=== PATIENT | female | born 1960 | race Caucasian/White ===

== ENCOUNTER 2017-03-29 16:09 | Emergency (ER) | payer OTHER ==
[~2017-03-29] VITALS: Ht 157.5 cm; Wt 53.0 kg
[~2017-03-29 16:09] MED LIST: ACET1TAB37 PO; AMOX1TAB10 PO; BACTDS PO; BENZ100C70 PO; FLUT16SP17 NASAL; NAPR-260 PO; PROM5SYR2 PO
[2017-03-29 16:13] VITALS: Ht 157.5 cm; Wt 53.0 kg
[2017-03-29] MEDS ORDERED: predniSONE 20 MG TAB PO STA (16:47)
[2017-03-29] MEDS ORDERED: DIPHENHYDRAMINE 50 MG CAP PO STA (16:47)
[2017-03-29] MEDS ORDERED: PRED10TA PO (16:52)
[2017-03-29] MEDS ORDERED: DIPH25CA6 PO (16:52)
--- NOTE | 2017-03-29 17:00 | ERD ---
ER Documentation Chief Complaint Date/Time DATE: 03/29/17 TIME: 16:57 Chief Complaint generalized rash with itching HPI This is a 56-year-old female with a history of diabetes type 2 on insulin, glaucoma presenting to the emergency department complaining of generalized itchiness and rash since Monday. Patient states that there is no pain associated. She rates as moderate in severity. She denies any shortness of breath or chest pain. Patient states that she has not tried any medications for this. Patient states that she had a glaucoma surgery 2 weeks prior to being seen in her vision is still decreased and she is continuing to use eyedrops. ROS All systems reviewed and are negative except as per history of present illness. Medications Home Meds Active Scripts Diphenhydramine Hcl* (Diphenhydramine Hcl*) 25 Mg Capsule, 25 MG PO Q6 Y for ITCHING, #30 CAP Prov:DOUGLAS BURCIAGA PA-C 03/29/17 Prednisone* (Prednisone*) 10 Mg Tab, 30 MG PO DAILY for 3 Days, TAB Prov:DOUGLAS BURCIAGA PA-C 03/29/17 Amoxicillin/Potassium Clav (Amox-Clav 875-125 mg Tablet) 875-125 mg Tab, 1 TAB PO BID for 7 Days, #14 TAB Prov:BINA MUNROE PA-C 09/14/16 Benzonatate* (Tessalon Perle*) 100 Mg Capsule, 100 MG PO Q8H Y for COUGH for 14 Days, CAP Prov:LIZZ WALSH PA-C 09/13/16 Acetaminophen/Chlorpheniramine (CORICIDIN HBP COLD & FLU TAB) 1 Each Tablet, 1 EACH PO BID for 7 Days, TAB Prov:LIZZ WALSH PA-C 09/13/16 Fluticasone Propionate* (Fluticasone Propionate* Nasal) 50 Mcg/Bladen - 16 Gm Bladen.susp, 1 SPRAY NASAL BID, #1 BOTTLE TO EACH NOSTRIL Prov:LIZZ WALSH PA-C 09/13/16 Naproxen* (Naprosyn*) 500 Mg Tablet, 500 MG PO BID Y for PAIN AND/OR INFLAMMATION, #30 TAB Prov:VALENTINO ARGUELLO MD 06/22/16 Sulfamethoxazole-Trimethoprim* (Bactrim* DS) 800-160 Mg Tab, 1 TAB PO BID for 10 Days, TAB Prov:SUMEET CRUZ MD 02/04/16 Promethazine HCl/Codeine (Prometh-Codein 6.25-10 mg/5 ml) 5 Ml Syrup, 5 ML PO Q6 for 10 Days Prov:ALBERTA WELLINGTON NP 08/09/15 Allergies Allergies: Coded Allergies: No Known Allergy (Unverified , 10/05/15) PMhx/Soc History of Surgery: No Anesthesia Reaction: No Hx Neurological Disorder: No Hx Respiratory Disorders: No Hx Cardiac Disorders: Yes (high blood pressure and takes medication) Hx Psychiatric Problems: No Hx Miscellaneous Medical Probl: Yes (diabetic - insulin and metformin) Hx Alcohol Use: No Hx Substance Use: No Hx Tobacco Use: No Physical Exam Vitals Vital Signs Date Time Temp Pulse Resp B/P Pulse Ox O2 Delivery O2 Flow Rate FiO2 03/29/17 16:13 98.2 81 18 104/57 99 Physical Exam General: WD/WN, in no apparent distress, non-toxic appearing HENT: NC/AT Eyes: Right conjunctival is erythematous Neck: Supple Pulm: Clear to auscultation, normal labored breathing; no wheezing/rales/ rhonchi heard CV: Good capillary refill GI: Non-distended, no guarding Back: No masses Ext: No clubbing, cyanosis, or edema Neuro: Moves on all fours Skin: Erythematous papules throughout body Psych: Normal mood Results 24 hrs Current Medications Medications (Trade) Dose Ordered Sig/Adan Route PRN Reason Start Time Stop Time Status Last Admin Dose Admin Prednisone (Prednisone) 40 mg ONCE STAT PO 03/29/17 16:47 03/29/17 16:48 DC Diphenhydramine HCl (Benadryl) 50 mg ONCE STAT PO 03/29/17 16:47 03/29/17 16:48 DC Procedures/MDM This is a 56-year-old female presenting to the emergency room with a history of diabetes type 2 and recently had got, surgery 2 weeks prior to being seen presents with generalized rash and itchiness since Monday. Patient's airways are intact, she appears well and breathing well. There was no evidence of anaphylaxis, cellulitis. I have consulted my supervising physician Dr. Moore regarding prednisone since patient has glaucoma and a recent surgery 2 weeks prior to being seen, he suggested to give a low dose of prednisone for the next 4 days. Patient was given prednisone 40 mg in the ED and a prescription for prednisone 30 mg for the next 3 days. In the ED patient was also given Benadryl , a prescription for Benadryl was provided for her. I discussed with her to follow-up with her primary care physician for further action management. Discussed return to the ER for any worsening signs and symptoms. Patient is stable to be discharged home she understands and agrees with this plan Departure Diagnosis: Primary Impression: Dermatitis Condition: Stable Patient Instructions: Dermatitis, Non-Specific Additional Instructions: Visite a cummins mdlolita nye para un EXAMEN.Regrese a estas instalaciones si no se mejora migel esperbamos o migel le dijimos. Regrese a estas instalaciones si no se mejora migel esperbamos o migel le dijimos. [place] toda la medicina alisson y migel se le indic. La medicina que se le recet puede causarle sueo.NO DEBE MANEJAR NI OPERAR MAQUINARIAS PELIGROSAS mientras esta tomando esta medicina! DOUGLAS BURCIAGA PA-C Mar 29, 2017 17:00
[2017-03-29 17:59] VITALS: BP 121/58; PULSE 70; RESP 16; TEMP 98.8
== END 2017-03-29 18:00 | disposition home or self-care (01) ==
LOC: FTE 16:09
DX: L30.9 Dermatitis, unspecified (principal); Z79.4 Long term (current) use of insulin; Z79.84 Long term (current) use of oral hypoglycemic drugs
CPT/HCPCS: J7512; Z7610; 99283